=== PATIENT | male | born 1955 | race Caucasian/White ===

== ENCOUNTER 2025-01-17 12:53 | Emergency (ER) | payer OTHER ==
[2025-01-17] MEDS ORDERED: ONDANSETRON 4 MG/2 ML VIAL ONE (13:26)
[2025-01-17] MEDS ORDERED: MORPHINE 4 MG/ML SYR ONE ×2 (13:26→16:47)
[2025-01-17] MEDS ORDERED: NA CHLORIDE 0.9% 1,000 ML ONE (13:26)
[2025-01-17 13:48] LABS: Absolute Basophils 0.1 K/uL (0-0.5); Absolute Lymphocytes (CBC) 1.1 K/uL (0.7-4.9); Absolute Monocytes 1.6 K/uL (0.1-1.3); Absolute Neutrophil 17.6 K/uL (1.8-8.0); Basophils % 0.5 % (0-1.3); Eosinophils % 0.2 % (0-4.4); Hemoglobin 15.1 g/dL (13.6-17.9); Lymphocytes % 5.3 % (15.3-44.8); MCHC 34.3 g/dL (32.0-36.0); MCV 87.6 fL (80-100); MPV 9.4 fL (7.6-11.3); Monocytes % 7.6 % (3.3-12.3); Neutrophils % 86.4 % (41.7-73.7); Platelets 195 thou/uL (152-406); RBC Red Blood Cell Count 5.02 M/uL (4.33-5.43); Red Cell Distribution Width 13.9 % (12.1-15.2)
[2025-01-17 14:04] LABS: Albumin 3.7 g/dL (3.4-5.0); Albumin/Globulin Ratio 0.8 (1.1-1.8); Anion Gap 10.3 mEq/L (5.0-15.0); Globulin 4.4 g/dL (2.3-3.5); Potassium 3.3 mEq/L (3.5-5.1); Protein, Total 8.1 g/dL (6.4-8.2)
[2025-01-17 14:17] LABS: Band Neutrophils 2 % (0-1); Differential Total Cells Count 100; Lymphocytes 4 % (15-42); Monocytes 5 % (0-10); Segmented Neutrophils 89 % (40-80)
[2025-01-17 14:18] LABS: Blood Morphology Comment NOT SEEN (NOT SEEN); Platelet Estimate ADEQ
--- NOTE | 2025-01-17 14:48 | RAD REPORT ---
EXAMINATION: Abdomen Pelvis W Contrast CLINICAL INDICATION: Male, 69 years old.Abd pain;Nausea / vomiting TECHNIQUE: CT abdomen and pelvis was performed, after the administration of IV contrast, [facility]. Axial, sagittal and coronal reconstructions were obtained. One or more of the following dose reduction techniques were used: Automated exposure control, adjustment of the mA and/o r kV according to patient size, and/or iterative reconstruction. Unless otherwise specified, incidental findings do not require dedicated imaging follow-up. [id number]. COMPARISON: 10/20/2021. FINDINGS: LOWER CHEST: No acute process identified.No significant pericardial effusion. Mild circumferential th ickening of the distal esophagus which could reflect esophagitis. UPPER GI: No significant abnormality. LIVER: Intrahepatic biliary duct dilatation, particularly the left hepatic lobe. GALLBLADDER/BILE DUCTS: Cholecystomy. Common bile duct measures 10 mm and is dilated.?Small cystic du ct remnant. PANCREAS: No pancreatic mass identified. There is diffuse prominence of the pancreatic duct. SPLEEN: Unremarkable. ADRENALS: 19 mm indeterminate right adrenal nodule. On the MRI from 06/19/2022, this measured 11 mm. KIDNEYS AND URETERS: No hydronephrosis.Low density and/or too small to characterize renal lesions whi ch are statistically benign. ABDOMINAL AORTA AND OTHER VESSELS: Mild atherosclerotic changes. PERITONEUM: No abnormal free fluid. No free air. LYMPH NODES: No pathologic lymphadenopathy. ABDOMINAL WALL: Fat containing inguinal hernias. SMALL BOWEL/COLON: Small bowel has normal course and caliber. No colonic wall thickening or pericolon ic inflammatory changes.Normal appendix. Liquid stool contents in the colon which may reflect diarrheal disease. URINARY BLADDER: Underdistended but grossly unremarkable. REPRODUCTIVE ORGANS: Mild prostatomegaly. MUSCULOSKELETAL: Multilevel degenerative changes in the spine. No acute fracture. ADDITIONAL FINDINGS: None. IMPRESSION: No acute findings within the abdomen or pelvis. No appendicitis. Some nonspecific fluid present withi n the colon could reflect diarrheal disease. No bowel obstruction. Moderate to severe intrahepatic biliary duct dilatation which is out of proportion to the degree of c ommon bile duct dilatation. This finding was present in 2021 as well and could reflect a stricture at the hepatic duct. If there is significant increase in the patient's bilirubin, suggest ERCP for fu rther evaluation and treatment. Indeterminate right adrenal nodule measuring 19 mm, previously 11 mm in 2021. . The relative stabilit y is reassuring for a benign process.
--- NOTE | 2025-01-17 15:27 | ER ---
Nurse's Notes [facility] Name: Harrison Rodriguez Age: 69 yrs Sex: Male : 1955 Arrival Date: 01/17/2025 Time: 12:53 Bed 19 Private MD: Diagnosis: Upper abdominal pain, unspecified;Vomiting, unspecified;Disease of biliary tract, unspecified Presentation: 01/17 12:59 Chief complaint: Patient states: Abdominal pain with nausea and diarrhea for 3 days. ll1 Coronavirus screen: Client denies travel out of the [place] in the last 14 days. At this time, the client does not indicate any symptoms associated with coronavirus-19. Ebola Screen: Patient denies travel to an Ebola-affected area in the 21 days before illness onset. Initial Sepsis Screen: Does the patient meet any 2 criteria? No. Patient's initial sepsis screen is negative. Does the patient have a suspected source of infection? No. Patient's initial sepsis screen is negative. Risk Assessment: Do you want to hurt yourself or someone else? Patient reports no desire to harm self or others. Onset of symptoms was January 15, 2025. 12:59 Method Of Arrival: Ambulatory ll1 12:59 Acuity: CRISTO 3 ll1 Triage Assessment: 12:59 General: Appears distressed, uncomfortable, ill, Behavior is calm, cooperative, ll1 appropriate for age. Pain: Complains of pain in abdomen Pain currently is 10 out of 10 on a pain scale. Neuro: Reports weakness. GI: Reports lower abdominal pain, upper abdominal pain, cramping, diarrhea, nausea. Historical: - Allergies: 12:58 No Known Allergies; ll1 - PSHx: 12:58 Cholecystectomy; ll1 - Immunization history:: Adult Immunizations up to date. - Infectious Disease History:: Denies. - Social history:: Smoking status: Patient reports use of chewing tobacco. - Family history:: not pertinent. - Hospitalizations: : No recent hospitalization is reported. Screenin:42 [facility] ED Fall Risk Assessment (Adult) History of falling in the last 3 months, cm10 including since admission No falls in past 3 months (0 pts) Confusion or Disorientation No (0 pts) Intoxicated or Sedated No (0 pts) Impaired Gait No (0 pts) Mobility Assist Device Used No (0 pt) Altered Elimination No (0 pt) Score/Fall Risk Level 0 - 2 = Low Risk Oriented to surroundings, Maintained a safe environment, Hourly rounding (assess needs \T\ fall precautionary measures) done. Abuse screen: Denies threats or abuse. Denies injuries from another. Nutritional screening: No deficits noted. Tuberculosis screening: No symptoms or risk factors identified. Assessment: 13:43 General: Appears uncomfortable, Behavior is calm, cooperative. Pain: Complains of pain cm10 in abdomen Pain currently is 10 out of 10 on a pain scale. Neuro: No deficits noted. Level of Consciousness is awake, alert, obeys commands, Oriented to person, place, time, situation, Appropriate for age. Respiratory: No deficits noted. Airway is patent Respiratory effort is even, unlabored, Respiratory pattern is regular, symmetrical. Musculoskeletal: Range of motion: intact in all extremities. 14:58 Reassessment: Patient appears in no apparent distress at this time. Patient and/or cm10 family updated on plan of care and expected duration. Pain level reassessed. Patient is alert, oriented x 3, equal unlabored respirations, skin warm/dry/pink. Patient states feeling better. Patient states symptoms have improved. 16:31 Reassessment: Patient appears in no apparent distress at this time. Patient and/or cm10 family updated on plan of care and expected duration. Pain level reassessed. Patient is alert, oriented x 3, equal unlabored respirations, skin warm/dry/pink. 17:12 GI: cm10 Vital Signs: 12:59 BP 152 / 79; Pulse 106; Resp 18; Temp 97.7; Pulse Ox 96% ; Weight 108.86 kg; Height 6 ll1 ft. 1 in. ; Pain 10/10; 13:43 BP 160 / 69; Pulse 96; Resp 18; Pulse Ox 96% ; cm10 14:59 BP 128 / 59; Pulse 98; Resp 18; Pulse Ox 94% ; cm10 16:30 BP 114 / 51; Pulse 92; Resp 18; Pulse Ox 91% ; cm10 17:00 BP 123 / 84; Pulse 97; Resp 18; Pulse Ox 94% ; cm10 12:59 Body Mass Index 31.66 (108.86 kg, 185.42 cm) ll1 12:59 Pain Scale: Adult ll1 ED Course: 12:57 Patient arrived in ED. sj2 12:57 Keith Araujo MD is Attending Physician. rn 13:02 Triage completed. ll1 13:02 Arm band placed on Patient placed in an exam room, on a stretcher. ll1 13:21 June Rubi, STANLEY is Primary Nurse. cm10 13:42 Patient has correct armband on for positive identification. Placed in gown. Bed in low cm10 position. Call light in reach. Side rails up X2. Pulse ox on. NIBP on. 13:42 CBC with Diff Sent. cm10 13:42 CMP Sent. cm10 13:42 Lipase Sent. cm10 13:42 Initial lab(s) drawn, by me, sent to lab. Inserted saline lock: 20 gauge in right cm10 antecubital area, using aseptic technique. Blood collected. Flushed with 10 mL NS. 14:31 CT Abd/Pelvis - IV Contrast Only In Process Unspecified. EDMS 15:17 initiated a transfer with Jeremiah Monzon from the [facility] transfer center. eb 15:[address] Morgan the hospitalist substation operator apprentice for [facility] with Dr. Araujo for eb patient transfer consultation. 15:38 administrative approval given by Jeremiah Monzon/ patient has been accepted to [facility] 4E RM 4E03/ Dr. Wayne Morgan has accepted the patient in transfer/ report to be called to [phone]. 16:55 Report given to STANLEY Charles at [facility]. cm10 17:12 Provided Education on: Need for transfer. cm10 17:12 No provider procedures requiring assistance completed. Patient transferred, IV remains cm10 in place. 17:13 Report given to [facility] who assumes care of patient. cm10 Administered Medications: 13:42 Drug: Ondansetron IVP 4 mg IVP once; over 2 minutes Route: IVP; Site: right antecubital;cm10 16:30 Follow up: Response: No adverse reaction cm10 13:42 Drug: morphine IVP or IV 4 mg IVP once over 4 mins Route: IVP; Infused Over: 4 mins; cm10 Site: right antecubital; 16:30 Follow up: Response: No adverse reaction cm10 13:42 Drug: NS 0.9% IV 1000 ml IV at 1000 ml once; to be given as a bolus over 60 minutes cm10 Route: IV; Rate: 1000 ml; Site: right antecubital; 16:29 Follow up: Response: No adverse reaction; IV Status: Completed infusion; IV Intake: cm10 1000ml 16:17 Drug: Piperacillin-Tazobactam IVPB 3.375 grams IVPB once over 60 mins; (mix in NS 100 cm10 mL) Route: IVPB; Infused Over: 60 mins; Site: right antecubital; 16:47 Follow up: Response: No adverse reaction; IV Status: Completed infusion; IV Intake: cm10 100ml 17:11 Drug: morphine IVP or IV 4 mg IVP once over 4 mins Route: IVP; Infused Over: 4 mins; cm10 Site: right antecubital; 17:11 Follow up: Response: Medication Administered at Departure cm10 Medication: 13:42 VIS not applicable for this client. cm10 Intake: 16:29 IV: 1000ml; Total: 1000ml. cm10 16:47 IV: 100ml; Total: 1100ml. cm10 Outcome: 15:27 ER care complete, transfer ordered by . rn 17:12 Transferred by [facility]. to other acute care facility: [facility].. cm10 17:12 Condition: good 17:12 Instructed on the need for transfer, 17:13 Patient left the ED. cm10 Signatures: Dispatcher [employer] EDMS Keith Araujo MD MD rn Botello, Elizabeth eb Lewis, Lynsay, RN RN ll1 June Rubi RN RN cm10 Mandi Carrillo 2 Corrections: (The following items were deleted from the chart) 13:02 12:59 Pulse 106bpm; Resp 18bpm; Pulse Ox 96%; Temp 97.7F; 108.86 kg; Height 6 ft. 1 ll1 in.; BMI: 31.6; Pain 1010, Adult; ll1
--- NOTE | 2025-01-17 15:28 | EDPHYS ---
Physician Documentation [facility] Name: Harrison Rodriguez Age: 69 yrs Sex: Male : 1955 Arrival Date: 01/17/2025 Time: 12:53 Bed 19 Private MD: ED Physician Keith Araujo HPI: 01/17 13:13 This 69 yrs old Male presents to ER via Ambulatory with complaints of Abdominal Pain, rn Vomiting. 13:13 The patient presents to the emergency department with nausea, vomiting, diarrhea, rn abdominal pain. Onset: The symptoms/episode began/occurred 3 day(s) ago. Patient reports abdominal pain, diffuse, associated with vomiting and diarrhea nonbloody for 3 days now. Patient reports started on left side of abdomen and spread out diffusely. No fever or chills. Patient reports previous cholecystectomy.. Historical: - Allergies: 12:58 No Known Allergies; ll1 - PSHx: 12:58 Cholecystectomy; ll1 - Immunization history:: Adult Immunizations up to date. - Infectious Disease History:: Denies. - Social history:: Smoking status: Patient reports use of chewing tobacco. - Family history:: not pertinent. - Hospitalizations: : No recent hospitalization is reported. ROS: 13:13 Constitutional: Negative for fever, chills, and weight loss, Cardiovascular: Negative rn for chest pain, palpitations, and edema, Respiratory: Negative for shortness of breath, cough, wheezing, and pleuritic chest pain, Abdomen/GI: Negative for constipation Back: Negative for injury and pain, MS/Extremity: Negative for injury and deformity, Skin: Negative for injury, rash, and discoloration, Neuro: Negative for headache, weakness, numbness, tingling, and seizure, Exam: 13:13 Constitutional: This is a well developed, well nourished patient who is awake, alert, rn vomiting into emesis bag ENT: Dry mucous membranes Cardiovascular: Tachycardic, regular. No pulse deficits. Respiratory: No increased work of breathing, no retractions or nasal flaring. Abdomen/GI: Soft, tender left lower quadrant and left upper quadrant as well as right lower quadrant. No right upper quadrant tenderness Vital Signs: 12:59 BP 152 / 79; Pulse 106; Resp 18; Temp 97.7; Pulse Ox 96% ; Weight 108.86 kg; Height 6 ll1 ft. 1 in. ; Pain 10/10; 13:43 BP 160 / 69; Pulse 96; Resp 18; Pulse Ox 96% ; cm10 14:59 BP 128 / 59; Pulse 98; Resp 18; Pulse Ox 94% ; cm10 16:30 BP 114 / 51; Pulse 92; Resp 18; Pulse Ox 91% ; cm10 17:00 BP 123 / 84; Pulse 97; Resp 18; Pulse Ox 94% ; cm10 12:59 Body Mass Index 31.66 (108.86 kg, 185.42 cm) ll1 12:59 Pain Scale: Adult ll1 MDM: 12:57 Medical Screening Exam initiated rn 15:25 Differential diagnosis: Nonspecific abd pain, gastritis, pancreatitis, diverticulitis, rn viral gastroenteritis, gastroenteritis. Data reviewed: vital signs, nurses notes, lab test result(s), radiologic studies, CT scan, and as a result, I will admit patient. Consideration of Admission/Observation Patient was admitted/placed on observation. Escalation of care including admission/observation considered. Counseling: I had a detailed discussion with the patient and/or guardian regarding the historical points, exam findings, and any diagnostic results supporting the discharge/admit diagnosis, lab results, radiology results, the need for further work-up and treatment in the hospital, the need to transfer to another facility, [facility] does not immediately have the required specialist. ED course: Patient with intrahepatic biliary dilatation, total bilirubin, and upper abdominal pain with vomiting. No GI here. Will organize transfer for further evaluation and GI consultation with MRCP versus ERCP. 01/17 12:58 Order name: CBC with Diff; Complete Time: 14:20 rn 01/17 12:58 Order name: CMP; Complete Time: 14:20 rn 01/17 12:58 Order name: Lipase; Complete Time: 14:20 rn 01/17 13:51 Order name: Manual Differential; Complete Time: 14:20 EDMS 01/17 12:58 Order name: CT Abd/Pelvis - IV Contrast Only; Complete Time: 14:56 rn 01/17 12:58 Order name: IV Saline Lock; Complete Time: 13:42 rn 01/17 12:58 Order name: Labs collected and sent; Complete Time: 13:42 rn Administered Medications: 13:42 Drug: Ondansetron IVP 4 mg IVP once; over 2 minutes Route: IVP; Site: right antecubital;cm10 16:30 Follow up: Response: No adverse reaction cm10 13:42 Drug: morphine IVP or IV 4 mg IVP once over 4 mins Route: IVP; Infused Over: 4 mins; cm10 Site: right antecubital; 16:30 Follow up: Response: No adverse reaction cm10 13:42 Drug: NS 0.9% IV 1000 ml IV at 1000 ml once; to be given as a bolus over 60 minutes cm10 Route: IV; Rate: 1000 ml; Site: right antecubital; 16:29 Follow up: Response: No adverse reaction; IV Status: Completed infusion; IV Intake: cm10 1000ml 16:17 Drug: Piperacillin-Tazobactam IVPB 3.375 grams IVPB once over 60 mins; (mix in NS 100 cm10 mL) Route: IVPB; Infused Over: 60 mins; Site: right antecubital; 16:47 Follow up: Response: No adverse reaction; IV Status: Completed infusion; IV Intake: cm10 100ml 17:11 Drug: morphine IVP or IV 4 mg IVP once over 4 mins Route: IVP; Infused Over: 4 mins; cm10 Site: right antecubital; 17:11 Follow up: Response: Medication Administered at Departure cm10 Disposition Summary: 01/17/25 15:27 Transfer Ordered Notes: Transfer Location: [facility] rn Reason: Higher level of care rn Condition: Stable rn Problem: new rn Symptoms: have improved rn Accepting Physician: (01/17/25 17:13) cm10 Diagnosis - Upper abdominal pain, unspecified rn - Vomiting, unspecified rn - Disease of biliary tract, unspecified rn Forms: - Medication Reconciliation Form rn - SBAR form rn Signatures: Dispatcher [employer] EDMS Keith Araujo MD MD rn Lewis, Lynsay, RN RN ll1 June Rubi RN RN cm10 Corrections: (The following items were deleted from the chart) 12:58 12:58 CBC+H.LAB.BRZ ordered. EDMS EDMS 12:58 12:58 COMPREHENSIVE METABOLIC PANEL+C.LAB.BRZ ordered. EDMS EDMS 12:58 12:58 LIPASE+C.LAB.BRZ ordered. EDMS EDMS 12:58 12:58 Abdomen Pelvis W Con+CT.RAD.BRZ ordered. EDMS EDMS 17:13 15:27 Dr. montiel cm10
[2025-01-17] MEDS ORDERED: PIPERACIL/TAZO 3.375 GM VIAL IV ONE (16:12)
[2025-01-17] MEDS ORDERED: NA CHLORIDE 0.9% 100 ML ONE (16:12)
[2025-01-17 17:35] VITALS: TEMP 97.7
[2025-01-17 17:41] VITALS: BP 123/84; O2SAT 94
== END 2025-01-17 17:13 | disposition short-term general hospital (02) ==
LOC: ER 12:53
DX: K83.9 Disease of biliary tract, unspecified (principal); R11.10 Vomiting, unspecified; F17.220 Nicotine dependence, chewing tobacco, uncomplicated
CPT/HCPCS: 96365; 96361; 85025; 36415; 83690; 80053; 74177; 96375; 99285; Q9967; J2543; J2405; J7030